=== PATIENT | female | born 1980 | race Caucasian/White ===

== ENCOUNTER 2017-02-03 11:28 | Emergency (ER) | payer OTHER ==
[~2017-02-03] VITALS: Ht 162.6 cm; Wt 81.8 kg
[~2017-02-03 11:28] MED LIST: ATEN25TA PO; Docusate Sodium PO; ENOX40DI8 SUBQ; IBUP800T28 PO; OXYC1TAB24 PO
[2017-02-03 11:34] VITALS: BP 117/77; PULSE 76; RESP 18; O2SAT 98
--- NOTE | 2017-02-03 11:48 | ED.REPORT ---
HPI-General Illness Date of Service February 03, 2017 ED Provider: Moreno Lu MD 36 year old female presents to the ER concerned for possible exposure to potentially contaminated sharps. 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 She states that she was washing instruments when an instrument punctured her finger through her glove. Nursing Notes Stated Complaint: PUNCTURED FINGER Chief Complaint: Extremity Trauma Nursing Notes Reviewed: Yes Allergies: Coded Allergies: No Known Allergies (Unverified Allergy, Unknown, 03/30/15) Scheduled ([Docusate Sodium]) 100 MG CAPSULE 100 MG PO BID Atenolol (Atenolol) 25 Mg Tablet 25 MG PO BID Enoxaparin Sodium (Enoxaparin Sodium) 40 Mg/0.4 Ml Syringe 40 MG SUBQ DAILY Scheduled PRN Ibuprofen (Ibuprofen) 800 Mg Tablet 800 MG PO Q6H PRN PRN For Pain oxyCODONE-Acetaminophen 5-325 mg (oxyCODONE-Acetaminophen 5-325 mg) 1 Tab Tablet 1-2 TAB PO Q4H PRN PRN For Pain General Time Seen by MD: 11:45 Chief Complaint Other (Exposure) Hx Obtained From: Patient Arrived By: Walk-in Sudden in Onset?: No Pertinent Negative: Pt denies other symptoms Similar Sx Previous: No Past Medical History Past Medical History Healthy Smoking History Never Smoker Social History Other Social History: Ambulatory Status Independent Review of Systems Full Review of Systems Constitutional: Denies: Chills, Fever Respiratory: Denies: Non-productive cough, Shortness of breath GI: Denies: Abdominal pain, Diarrhea, Vomiting Complete sys rev & neg: except as marked. Physical Exam Vital Signs Vital Signs Date Time Temp Pulse Resp B/P Pulse Ox O2 Delivery O2 Flow Rate FiO2 02/03/17 11:34 36.2 76 18 117/77 98 Room Air Initial VS: Reviewed Head / Eyes: Atraumatic, Normocephalic Neck: Supple, Non-tender, Full range of motion Abdomen / GI: Soft, Non-tender, No guarding, No rebound, No distention Extremities: Vascular intact, Neuro intact, No swelling, No tenderness Skin: Warm, Dry, No cyanosis Neurologic: Alert, Oriented, Nonfocal General/Constitutional: Awake, Alert, Well appearing, Well developed, Well nourished Wrist / Hand: Full range of motion, Neurologic intact, Vascular intact Interpretation & Diagnostics Lab Results Interpretation Test 02/03/17 12:00 Hepatitis B Surface Antibody Reactive (.) Hepatitis C Antibody <0.1s/co ratio (0.0-0.9) HIV (1&2) Ag and Ab, 4th Generation Non reactive (Non Reactive) Re-Eval/Medical Decision Med Decision/Clinical Course 36-year-old female presenting status post exposure to dirty surgical equivalent. She works in the hospital and poked herself with use surgical command. She has a small puncture wound on finger as above. Unknown source. Patient was drawn for needlestick labs. Patient is unsure if she wants HIV post-exposure prophylaxis. She was counseled regarding benefits and risks. She requested a prescription will think about it was advised to start soon as possible if she decides to do so. Advised to follow-up with employee health tomorrow. Return precautions given. Time of Eval: 11:56 Re-Evaluation/Progress Note: Discussed treatment options and plan to discharge. Patient is amenable to the plan. Return precautions given. All other questions addressed. Counseled Regarding: Diagnosis, Lab results, Need for follow-up, When/why to return to ED Discharge & Departure Primary Impression: Needle stick injury Disposition: Home Discharge Condition All VS Reviewed: Yes Condition: Stable Additional Instructions: We have drawn labs today, it will take some time for you to get the results. I have prescribed you prophylactic HIV exposure medications. Take these as prescribed if you want. Call employee health and arrange an appointment for tomorrow. Return to the ER if you develop any concerning symptoms. Referrals: [facility] (PCP) Joel Attestation Portions of this note were transcribed by Zainab Lozano. I, Dr. Lu, personally performed the history, physical exam and medical decision-making; I reviewed and confirmed the accuracy of the information in the transcribed note. Signed by: Joel Storey, 02/03/2017 at 12:09 Moreno Lu MD February 03, 2017 11:47 ZAINAB LOZANO February 03, 2017 11:55
== END 2017-02-03 12:29 | disposition home or self-care (01) ==
LOC: SED 11:28
DX: S61.239A Puncture wound without foreign body of unspecified finger without damage to nail, initial encounter (principal); W46.0XXA Contact with hypodermic needle, initial encounter; Y93.89 Activity, other specified; Y92.238 Other place in hospital as the place of occurrence of the external cause; Y99.0 Civilian activity done for income or pay
CPT/HCPCS: 36415; 86706; 99283; G0433